=== PATIENT | male | born 1950 | race Caucasian/White ===

== ENCOUNTER 2020-03-12 22:41 | Emergency (ER) | payer MEDICARE, MEDICAID, SELFPAY ==
[2020-03-12 22:56] VITALS: BP 142/72; PULSE 91; RESP 18; TEMP 37.4; O2SAT 98; BMI 27.3
--- NOTE | 2020-03-13 02:20 | ED.GENADULT ---
HPI - General Adult General Chief complaint: Nausea/Vomiting/Diarrhea Stated complaint: HIGH BLOOD PRESSURE Time Seen by Provider: 03/13/20 02:02 Source: patient Mode of arrival: ambulatory Limitations: no limitations History of Present Illness HPI narrative: With history of hypertension take lisinopril/hydrochlorothiazide complaining of chills and slight hacking cough blood pressure was 190/90s at home denies any weakness no fever denies any contact with COVID Related Data Previous Rx's Medication Instructions Recorded dexamethasone [Decadron] 6 mg PO DAILY #7 tab 03/13/20 Allergies Allergy/AdvReac Type Severity Reaction Status Date / Time No Known Allergies Allergy Verified 03/12/20 23:01 [No Known Allergies*] Review of Systems Review of Systems: Constitutional : No Weight loss, No Fever, chills+ ENT/Mouth : No sore throat, No Rhinorrhea Eyes: No Eye Pain, No Swelling Cardiovascular : No Chest Pain, no Dyspnea on Exertion, No Orthopnea, No Edema, No Palpitations, no SOB Respiratory : No Cough, No Sputum Gastrointestinal : no Nausea, No Vomiting, No Diarrhea, No abdominal Pain, No Hematochezia, No Melena Genitourinary : No Dysuria, No Urinary Frequency Musculoskeletal : No joint pain, No Myalgias, No Joint Swelling Skin : No Skin Lesions, No rash Neuro : No Weakness, No Numbness, No Dizziness, No Headache Psych : No Anxiety/Panic, No Depression Heme/Lymph: No Bruising, No Lymphadenopathy Endocrine : No Polyuria, No Polydipsia All other systems reviewed and are negative FOR[facility]LY [facility] Past Medical History Medical History High cholesterol HTN (hypertension) Social History Social History Advance Directives: No Advance Directives Information Provided: No Physical Exam Vital Signs: Vital Signs: Last Vital Signs Temp 99.4 F 03/12/20 22:56 Pulse 81 03/13/20 03:41 Resp 16 03/13/20 03:41 BP 126/75 03/13/20 03:41 Pulse Ox 96 03/13/20 03:41 Body Mass Index 27.3 Appearance: Alert. Oriented X3. No acute distress. Eyes: Pupils equal, round and reactive to light. ENT: Pharynx normal. Neck: Normal inspection. Neck supple. CVS: Normal heart rate and rhythm. Pulses normal. Respiratory: No respiratory distress. Breath sounds normal. Abdomen: Soft and nontender. Bowel sounds are present, no mass palpable, no CVA tenderness Skin: Skin warm and dry. Normal skin color. Normal skin turgor. Extremities: No lower extremity edema. Neuro: Oriented X 3. No motor deficit. No sensory deficit. Medical Decision Making MDM Narrative Medical decision making narrative: Patient came with hypertension and slight dry cough and chills workup showed that she is COVID-19 positive chest x-ray negative for any acute infiltrate. His blood pressure was elevated at home 190/90s but after rechecking here it was in 130s range and while same time when he recheck with his blood pressure machine it improved but other times it was giving errors likely motion defect. Patient start patient on Decadron for his COVID positive status with dry cough and chills Lab Data Lab results reviewed: Yes I reviewed the patient's lab results. Labs: Lab Results 03/13/20 03/13/20 Range/Units 02:42 02:42 Urine Color YELLOW Urine Appearance CLEAR Urine pH 6.0 (5.0-8.0) Ur Specific [place] 1.020 (1.005-1.025) Urine Protein NEG (NEG-TRACE) MG/DL Urine Glucose (UA) NEG (NEG) MG/DL Urine Ketones NEG (NEG) MG/DL Urine Blood 1+ H (NEG) Urine Nitrite NEG (NEG) Ur Leukocyte Esterase NEG (NEG) Urine RBC 0-2 (0) /HPF Urine WBC 0 (0-4) /HPF Ur Squamous Epith Cells 1+ /LPF Urine Bacteria NONE /LPF Urine Mucus TRACE /LPF Coronavirus (PCR) POSITIVE A (Negative) Influenza Type A (PCR) NEGATIVE (Negative) Influenza Type B (PCR) NEGATIVE (Negative) RSV RNA Qual (PCR) NEGATIVE (Negative) Discharge Plan Discharge Clinical Impression: COVID-19 Patient Disposition: Home, Self-Care Instructions: COVID-19 (Coronavirus Disease 2019) (ED) Additional Instructions: COVID-19 precautions as advised, keep hydrated take medication as prescribed Prescriptions: New dexamethasone [Decadron] 6 mg tablet 6 mg PO DAILY Qty: 7 RF: 0 Interventions: ED Discharge Assessment Last Done: 03/13/20 04:44 Discharge Date/Time: 03/13/20 04:45
[2020-03-13 02:49] LABS: Glucose Urine UA NEG (NEG); Leukocyte Esterase Urine NEG (NEG); Nitrite Urine NEG (NEG); Urine Blood 1+ (NEG); Urine Ketones NEG (NEG); Urine Protein NEG (NEG-TRACE)
--- NOTE | 2020-03-13 02:49 | PC.NURSE ---
PT DENIES HAVING ANY GI SYMPTOMS, RESPIRATORY SYMPTOMS OR WEAKNESS. PT WORRIED ABOUT THE BLOOD PRESSURE READING FROM HIS CUFF AT HOME. PT ALSO CONCERNED BECAUSE HIS BP WAS ELEVATED, HE MIGHT HAVE COVID. PT ASKING IF IT WAS POSSIBLE TO GET FOOD POISONING FROM A SCRACH IN THE [place] THAT WAS COVERED WITH PAINT, THEN FOOD [place]ED. PT THREW OUT HIS [place].
[2020-03-13 02:51] LABS: Appearance Urine CLEAR; Color Urine YELLOW
[2020-03-13 02:55] LABS: Mucus Urine TRACE /LPF; RBC Urine 0-2 /HPF (0); Squamous Epithelial Cell Urine 1+ /LPF; WBC Urine 0 /HPF (0-4)
[2020-03-13 03:27] LABS: Influenza A PCR NEGATIVE (Negative); Influenza B PCR NEGATIVE (Negative); Resp Syncy Virus RNA Qual PCR NEGATIVE (Negative)
[2020-03-13 03:36] LABS: SARS COV2 PCR INHOUSE POSITIVE (Negative)
--- NOTE | 2020-03-13 03:38 | XR_ITS ---
EXAMINATION: CHEST 1 VIEW CLINICAL INFORMATION: Covid positivity. COMPARISON: 04/23/2015. TECHNIQUE: An AP view of the chest is provided. FINDINGS: The cardiac silhouette is not enlarged. The mediastinal and hilar contours are unremarkable. There are neither pleural effusions nor pneumothoraces. There are no consolidations. The osseous structures are unremarkable. XR/XR chest 1V IMPRESSION: No evidence for acute disease.
[2020-03-13 03:41] VITALS: BP 126/75; PULSE 81; RESP 16; O2SAT 96
[2020-03-13] MEDS: dexAMETHasone 6 MG TABLET PO (04:07)
--- NOTE | 2020-03-13 04:11 | PC.NURSE ---
PT HAS AN INFREQUENT DRY COUGH, REPORTS THAT HE HAD THE CHILLS TODAY AFTER BEING OUTSIDE. PT HAS BEEN EXPOSED TO COVID POSITIVE FRIENDS, OVER THE PAST WEEK.
== END 2020-03-13 04:45 | disposition home or self-care (01) ==
PROVIDERS: Emergency Provider Internal Medicine
DX: U07.1 COVID-19 (principal); I10 Essential (primary) hypertension
CPT/HCPCS: 0241U; 71045; 81001; 99283; 99284; J8540

== ENCOUNTER → 2021-01-02 11:00 | Outpatient (BNVA) | payer MEDICARE, OTHER, SELFPAY | PROVIDERS: Referring Provider Internal Medicine; Visit Provider Physician Assistant | DX: Z01.818 Encounter for other preprocedural examination (principal); E78.00 Pure hypercholesterolemia, unspecified; I10 Essential (primary) hypertension | CPT/HCPCS: 99202 ==

== ENCOUNTER 2021-02-24 11:14 | Day surgery (SDC) | payer MEDICARE, OTHER, SELFPAY ==
[2021-02-17 14:50] VITALS: BMI 28.8
[2021-02-24 11:28] VITALS: BP 135/72; PULSE 86; RESP 16; TEMP 37.2; O2SAT 98; BMI 28.8
--- NOTE | 2021-02-24 12:37 | HO.ANESPROP2 ---
HPI - Anesthesia Eval Consult details Narrative: 70 yo male patient for colonoscopy PMFSH Active Problems Active Problems: All Active Problems (Updated 02/17/21 @ 14:43 by Suly Chavez RN) COVID-19 (Acute) Encounter for screening colonoscopy (Acute) Past Medical History Medical History (Updated 02/17/21 @ 14:43 by Suly Chavez RN) Hand contusion High cholesterol History of COVID-19 HTN (hypertension) Family History Family History Brother HTN (hypertension) Brother HTN (hypertension) Family history of problems with anesthesia: No Surgical History Surgical History Hx of colonoscopy History of Problems with Anesthesia: No Social History Social History (Updated 01/02/21 @ 11:22 by Kym Madden PA-C) Household Members Other:: alone Alcohol intake: current Patient Tobacco Use Status: Never used Tobacco Advance Directives Information Provided: Yes Advance Directives on File: No Current occupational status: retired [employer] Allergies Allergy/AdvReac Type Severity Reaction Status Date / Time No Known Allergies Allergy Verified 01/02/21 11:02 [No Known Allergies*] Home Medications Medication Instructions Recorded Confirmed Last Taken Type amlodipine 10 mg tablet 10 mg PO DAILY 01/02/21 02/24/21 02/24/21 History 1000 atorvastatin 40 mg tablet 40 mg PO DAILY 01/02/21 02/17/21 Unknown History cholecalciferol (vitamin D3) 50 50 mcg PO DAILY 01/02/21 02/17/21 Unknown History mcg (2,000 unit) capsule lisinopril 20 1 tab PO DAILY 01/02/21 02/17/21 Unknown History mg-hydrochlorothiazide 25 mg tablet wuzlhrva-hbp-pfuwr acid 0.4 1 tab PO DAILY 01/02/21 02/17/21 Unknown History mg-lycopene 300 mcg-lutein 250 mcg tablet ([employer]ite Senior) Exam Exam Date and Time: February 24, 2021 1237 Height,Weight and Vital Signs: Height 5 ft 8 in Weight 86.183 kg Last Vital Signs Temp 98.9 F 02/24/21 11:28 Pulse 86 02/24/21 11:28 Resp 16 02/24/21 11:28 BP 135/72 02/24/21 11:28 Pulse Ox 98 02/24/21 11:28 Airway Mallampati Class: II TM Dist: >3cm Neck ROM: Full Loose/Missing/Broken Teeth: No Heart: RRR Lungs: CTAB Assessment and Plan Assessment Anesthesia Assessment: Anesthesia Plan Discussed and Chart Reviewed Final Anesthetic Review Family History of Problems with Anesthesia: No History of Problems with Anesthesia: No NPO: Yes ASA Class: II Final Preanesthetic Review: No Changes in Pt Med Stat, Meds/Allgs Chart Reviewed, Consent Obtained/Reviewed and Anes Risks/Benef Reviewed Patient Risk: Low Procedure Risk: Low Assessment/Block/Sedation in SS: Assess/Block/Sedation-SS Anesthetic Plan Anesthetic Plan: MAC: Disposition: Standard PACU
--- NOTE | 2021-02-24 13:24 | MHC.SHP ---
Pre-Procedural Eval Section A Date of Service: 02/24/21 The patient is an INPATIENT: No The History & Physical has been completed within 30 days and I have reviewed it.: No Section B Chief Complaint: Screening Details of Present Illness: Colon cancer screening Relevant Family History (Specify if Yes): No Relevant Social History: None Present Medications: see Short Stay Collaborative assessment Medical History: Significant History (Hand contusion High cholesterol HTN (hypertension)) History of Previous Operations: Relevant previous surgery/procedure and date(s) (History of colonoscopy) Allergies: Allergies Allergy/AdvReac Type Severity Reaction Status Date / Time No Known Allergies Allergy Verified 01/02/21 11:02 [No Known Allergies*] Review of Systems Sugical H&P ROS: Negative: Constitution, Cardiovascular, Respiratory and Gastrointestinal Exam Surgical H&P Exam: Normal: Heart, Normal: Lungs, Normal: Extremities and Normal: Abdomen Plan Diagnosis/Plan: Unchanged I have reviewed the history and physical and performed a pertinent physical examination on my patient. No changes have occurred unless specified.
--- NOTE | 2021-02-24 14:02 | PM.OP ---
Brief Operative Note Date of Service: 02/24/21 Pre-op diagnosis: COLON CANCER SCREENING Post-op diagnosis: other (Colon polyp, diverticulosis, hemorrhoids) Procedure: COLONOSCOPY TILL CECUM WITH BIOPSIES Consent: Indications for the procedure and potential complications of bleeding, perforation, reaction to medications and missed diagnosis were discussed with the patient and informed consent was obtained. Instrument: Olympus PCF H 190 L variable stiffness pediatric colonoscope Monitoring: Vital signs and clinical assessment, intermittent blood pressure monitoring, continuous EKG monitoring, Pulse oximetry and Carbon Dioxide monitoring were done throughout the procedure. Colon withdrawl time was 19 minutes. Procedure: The patient was placed in the left lateral decubitis position and pre-procedure medications were administered. After a digital rectal examination of the ano-rectum, the video colonoscope was inserted into the rectum and advanced through the colon to the cecum. The colonoscope was slowly withdrawn in a retrograde panoramic fashion and the colon mucosa was carefully examined including a retroflexed view of the rectum. Findings and interventions are described below. Procedure Difficulty: Without difficulty Findings: Terminal Ileum: Not evaluated Cecum: Normal Ascending Colon: Normal Transverse Colon: Normal Descending Colon: Moderate diverticulosis Sigmoid Colon: A 4-5 mm sessile polyp removed with a cold bx. Moderate diverticulosis Rectum: Normal Ano-rectum: Moderate internal hemorrhoids Colon preparation: Good Impression and Post Procedure Diagnosis: Colonoscopy Findings: One small polyps removed Moderate diverticulosis seen in the entire colon Moderate hemorrhoids on retroflexed exam. Plan: Await pathology results Patient has an appointment on 03/10/21 in the GI Clinic with VERITO Dos Santos. Repeat Colonoscopy interval based on path results - in 5 years if polyps are adenomatous and 10 years if polyps are hyperplastic. Above findings were reviewed with the patient and colon polyps, hemorrhoids and diverticulosis handouts were given in the discharge area Surgeon: Le Denise MD Anesthesia: MAC (Domingo Dutta CRNA) Was an Portable Grinding Machine Operator used for this Procedure?: Yes Portable Grinding Machine Operator: Tala Flores Estimated blood loss (mL): 0 Pathology: other (A. sigmoid colon polyp) Condition: stable Disposition: PACU
[2021-02-24 14:35] VITALS: BP 81/52; PULSE 68; RESP 16; TEMP 36.5; O2SAT 96
[2021-02-24 14:51] VITALS: BP 95/56; PULSE 77; RESP 18; TEMP 36.2; O2SAT 97
--- NOTE | 2021-03-20 19:01 | PM.PROC ---
Brief Operative Note Date of procedure: 02/24/21 Pre-op diagnosis: Colon cancer screening Post-op diagnosis: other (Colon polyp, diverticulosis, hemorrhoids) Procedure: Procedure:? COLONOSCOPY TILL CECUM WITH BIOPSIES Consent: Indications for the procedure and potential complications of bleeding, perforation, reaction to medications and missed diagnosis were discussed with the patient and informed consent was obtained. Instrument: Olympus PCF H 190 L variable stiffness pediatric colonoscope Monitoring: Vital signs and clinical assessment, intermittent blood pressure monitoring, continuous EKG monitoring, Pulse oximetry and Carbon Dioxide monitoring were done throughout the procedure. Colon withdrawl time was 19 minutes. Procedure: The patient was placed in the left lateral decubitis position and pre-procedure medications were administered. After a digital rectal examination of the ano-rectum, the video colonoscope was inserted into the rectum and advanced through the colon to the cecum. The colonoscope was slowly withdrawn in a retrograde panoramic fashion and the colon mucosa was carefully examined including a retroflexed view of the rectum. Findings and interventions are described below. Procedure Difficulty: Without difficulty Findings: Terminal Ileum: Not evaluated Cecum:? Normal Ascending Colon:? Normal Transverse Colon:? Normal Descending Colon:? Moderate diverticulosis Sigmoid Colon:? A 4-5 mm sessile polyp removed with a cold bx. Moderate diverticulosis Rectum:? Normal Ano-rectum:? Moderate internal hemorrhoids Colon preparation:? Good? Impression and Post Procedure Diagnosis: Colonoscopy Findings: One small polyps removed Moderate diverticulosis seen in the entire colon Moderate hemorrhoids on retroflexed exam. Plan: Await pathology results Patient has an appointment on 03/10/21 in the GI Clinic with VERITO Dos Santos. Repeat Colonoscopy interval based on path results - in 5 years if polyps are adenomatous and 10 years if polyps are hyperplastic. Above findings were reviewed with the patient and colon polyps, hemorrhoids and diverticulosis handouts were given in the discharge area Surgeon:?Le Denise MD Anesthesia: MAC (Domingo Dutta CRNA) Surgeon: Le Denise Cost Accounting Analyst: Tala Flores Estimated blood loss (mL): 0 Pathology: other (A. Sigmoid colon polyp) Condition: stable Disposition: PACU
== END 2021-02-24 15:36 | disposition home or self-care (01) ==
PROVIDERS: Visit Provider Internal Medicine Gastroenterology
PROC: 0DJD8ZZ Inspection of Lower Intestinal Tract, Via Natural or Artificial Opening Endoscopic (ICD-10-PCS; CPT 45378; principal; 2021-02-24 12:00)
DX: Z12.11 Encounter for screening for malignant neoplasm of colon (principal); D12.5 Benign neoplasm of sigmoid colon; K57.30 Diverticulosis of large intestine without perforation or abscess without bleeding; K64.8 Other hemorrhoids; I10 Essential (primary) hypertension; E78.00 Pure hypercholesterolemia, unspecified; Z79.899 Other long term (current) drug therapy
CPT/HCPCS: 45380; 88305

== ENCOUNTER 2023-11-02 08:34 | Outpatient (REF) | payer MEDICARE, SELFPAY ==
--- NOTE | ~2023-11-02 | US_ITS ---
EXAMINATION: US RETROPERITONEAL LIMITED (AORTA) CLINICAL INFORMATION: Screening for abdominal aortic aneurysm. COMPARISON: Ultrasound abdomen 11/27/2010. TECHNIQUE: Keating-scale, color Doppler and spectral Doppler evaluation of the abdominal aorta. FINDINGS: The aorta is normal in caliber. The measurements of the aorta in maximum AP and transverse dimensions respectively are as follows: Proximal: 2.4 x 2.5 cm. Mid: 1.6 x 1.8 cm. Distal: 1.6 x 1.8 cm. PSV: 114 cm/s. The measurements of the common iliac arteries in maximum AP and TRV dimensions are as follows: Right Common Iliac Artery: 1.2 x 1.1 cm. Left Common Iliac Artery: 1.1 x 1.2 cm. US/US abdominal aortic aneurysm IMPRESSION: Negative for abdominal aortic aneurysm.
== END 2023-11-02 08:35 | disposition home or self-care (01) ==
LOC: HO.US 08:34
PROVIDERS: PCP Nurse Practitioner Primary Care; Visit Provider Nurse Practitioner Primary Care
DX: Z13.6 Encounter for screening for cardiovascular disorders (principal)
CPT/HCPCS: 76706

== ENCOUNTER 2025-01-16 14:42 | Outpatient (REF) | payer MEDICARE, SELFPAY ==
--- NOTE | ~2025-01-16 | XR_ITS ---
EXAMINATION: XR KNEE, RIGHT CLINICAL INFORMATION: chronic R knee pain COMPARISON: None available. TECHNIQUE: AP standing, sunrise and lateral views of the right knee. FINDINGS: There is mild narrowing of the medial joint space and mild narrowing of the lateral joint space. There are tricompartmental marginal osteophytes are largest along the medial joint line and lateral patellofemoral joint, and medial trochlea. There is no joint effusion. XR/XR knee RT 3V IMPRESSION: Mild to moderate osteoarthritis. Electronically signed by: Jack Bates MD 01/16/2025 03:26 PM EDT
--- NOTE | ~2025-01-16 | XR_ITS ---
EXAMINATION: XR KNEE, LEFT CLINICAL INFORMATION: fell in February, hit L knee. Ongoing pain x 3 mo COMPARISON: None available. TECHNIQUE: AP standing (included in the right knee x-ray), sunrise and lateral views of the left knee. FINDINGS: There is mild to moderate narrowing in the medial joint space and minimal narrowing of the lateral joint space. There is subtle medial subluxation of distal femur. There are tricompartmental marginal osteophytes most pronounced in the medial joint line and patellofemoral joint. Intercondylar tubercles are peaked. No joint effusion is evident. XR/XR knee LT 3V IMPRESSION: Moderate osteoarthritis. Electronically signed by: Jack Bates MD 01/16/2025 03:28 PM EDT
[2025-01-16 16:18] LABS: MANUAL DIFF FLAG NO
[2025-01-16 16:37] LABS: Microalbum/Creatinine Ratio Ur 3.9 ug/mg cr (<30)
[2025-01-16 16:45] LABS: Hematocrit 49.2 % (42.0-52.0); Hemoglobin 16.5 g/dl (14.0-18.0); Imm Gran Abs Auto 0.03 X10*3/uL (0.00-0.03); Imm Gran Pct Auto 0.4 % (0.0-0.4); Lymphocytes Absolute Auto 1.9 X10*3/uL (1.2-4.9); Mean Corpuscular HGB Conc 33.5 g/dl (31.0-36.0); Mean Corpuscular Hemoglobin 32.0 pg (27.0-33.0); Mean Corpuscular Volume 95.5 fL (80.0-98.0); NRBC Abs Auto 0.000 X10*3/uL (0.0-0.012); NRBC Pct Auto 0.0 /100WBC (0.0-0.2); Platelet Count 341 X10*3/uL (160-400); Red Blood Count 5.15 X10*6/uL (4.60-5.80); White Blood Count 8.1 X10*3/uL (4.8-10.8)
[2025-01-16 17:25] LABS: Alanine Aminotransferase 36 U/L (0-40); Albumin Level 4.4 g/dL (3.5-5.0); Alkaline Phosphatase 61 U/L (39-117); Anion Gap 12 (12-20); Aspartate Amino Transferase 25 U/L (5-37); Blood Urea Nitrogen 22 mg/dL (9-16); Calcium 9.4 mg/dL (8.4-10.2); Carbon Dioxide 29 mmol/L (22-29); Chloride 103 mmol/L (96-108); Cholesterol 224 mg/dL (<200); Estimated Glomerular Filt Rate > 60; HDL Cholesterol 74 mg/dL (>40); Potassium 3.8 mmol/L (3.3-5.1); Sodium 140 mmol/L (135-145); Total Protein 7.4 g/dL (6.5-8.0); Triglycerides 131 mg/dL (<150)
--- OUTSIDE RECORDS SUMMARY | 2025-01-16 19:10 | XMS_ITS | Encounter Summary ---
Author Organization [employer] Address [address] [facility] [address] [place] [address] Care Team Providers Care Coroner'S Juror Name Role Phone Karina Menard Primary Care Provider [phone] Reason for Visit * Reason Onset Date Comments Appointment Request 07/14/2024 Encounter Details Date Type Department Care Team ([facility] st Contact Info) Description 07/14/[address] [facility] MEDICINE [address] [place] [address] Karina Menard ANP [address] [place] [address] Appointment Request Social History Tobacco Use Types Packs/Day Years Used Date Smoking Tobacco: Former Cigarettes Q uit: 1992 Smokeless Tobacco: Never Alcohol Use Standard Drinks/Week Comments Yes 0 (1 standard drink = 0.6 oz pure alcohol) a few cans of Truly on weekend Alcohol Answer Date Recorded Frequency of Alcohol Consumption Not on file 05/27/2023 Average Number of Drinks Not on file 024 Frequency of Binge Drinking Not on file 09/2023 Score 0 05/27/2023 Depression Answer Date Recorded Patient Health Questionnaire-9 Score 0 09/07/2023 Patient Health Questionnaire-9 Score 0 09/07/2023 Last PHQ-9: Questionnaire Data Not on file 0 09/07/2023 Housing Stability Answer Date Recorded What is your housing situation today? I have boni [place] 06/26/[address] you li ve. Do you have problems with any of the following? None of the above 06/26/2024 Food Insecurity Answer Date Recorded Within the past 12 months, y ou worried that your food would run out before you got money to buy more: Never True 06/26/2024 Within the past 12 months,th e food you bought just didn't last and you didn't have enough money to get more: Never True 09/2024 Transportation Answer Date Recorded In the past 12 months, has l ack of transportation kept you from medical appts, meetings, work or from getting things needed for daily living? No 06/26/2024 Utilities Answer Date Recorded In the past 12 months, has t he electric, gas, oil or water company threatened to shut off services in your home? No 06/26/2024 Depression Answer Date Recorded Patient Health Questionnaire-2 Score 1 06/26/2024 Internet Access Answer Date Recorded Internet Access Q1 Yes 06/26/2024 Internet Access Q2 Not on file 06/26/2024 Sex and Gender Information Value Date Recorded Sex Assigned at Male 01/19/2022 10:16 AM EDT Legal Sex Male 10:16 AM EDT Gender Identity Male 01/19/2022 10:16 AM EDT Sexual Orientation Choose not to disclose 2021 10:16 AM EDT documented as of this encounter Miscellaneous Notes * Telephone Encounter - Ashli Noble MA - 07/14/2024 1:37 PM EDT Patient is booked for 08/01/2024 @10:30 am and he is aware. After that visit we could schedule him for the next knee. * Telephone Encounter - Ashok Urban - 07/14/2024 11:52 AM EDT Tc from pt requesting a appt with PCP to get a Cortisone Shot for his Right Leg. Contact pt at [phone] documented in this encounter Plan of Treatment Not on file documented as of this encounter Visit Diagnoses Not on filedocumented in this encounter Additional Health Concerns Assessment Noted Time PHQ-9 Depression Total Score: 0 09/07/19 24 1:41 PM EDT documented as of this encounter Care Teams Coroner'S Juror Relationship Specialty Start Date End Date Karina Menard ANP [address] [place] [address] PCP - General Family Medicine 02/16/22 documented as of this encounter
--- OUTSIDE RECORDS SUMMARY | 2025-01-16 19:10 | XMS_ITS | Encounter Summary ---
Author Organization [employer] Address [address] [facility] [address] [place] [address] Care Team Providers Care Linen Folder Name Role Phone Karina Menard Primary Care Provider [phone] Reason for Visit * Reason Comments Med Refill Encounter Details Date Type Department Care Team (Late st Contact Info) Description 01/10/2025 Refill [facility] MEDICINE [address] [place] [address] Karina Menard ANP [address] [place] [address] Vitamin D deficiency Social History Tobacco Use Types Packs/Day Years [...] AM EDT documented as of this encounter Plan of Treatment Not on file documented as of this encounter Visit Diagnoses Diagnosis Vitamin D deficiency documented in this encounter Additional Health Concerns Assessment Noted Time PHQ-9 Depression Total Score: 0 09/07/19 24 1:41 PM EDT documented as of this encounter Care Teams Linen Folder Relationship Specialty Start Date End Date Karina Menard ANP [address] [place] [id number] PCP - General Family Medicine 02/16/22 documented as of this encounter
--- OUTSIDE RECORDS SUMMARY | 2025-01-16 19:10 | XMS_ITS | Encounter Summary ---
Author Organization [employer] Address [address] [place] [address] [address] [place] [address] Care Team Providers Care Automobile Radiator Mechanic Name Role Phone Na Matthews MD Primary Care Provider Karina Silva Primary Care Provider [phone] Encounter Details Date Type Department Care Team (Latest Contact Info) Description 07/21/2021 Abstract [facility] CONVERSIONS Dental, Provider, DDS Social History Tobacco Use Types Packs/Day Years Used Date Smoking Tobacco: Never Assessed Sex and Gender Information Value Date Recorded Sex Assigned at Male 01/19/2022 10:16 AM EDT Legal Sex Male 10:16 AM EDT Gender Identity Male 01/19/2022 10:16 AM EDT Sexual Orientation Choose not to disclose 2021 10:16 AM EDT documented as of this encounter Plan of Treatment Not on file documented as of this encounter Visit Diagnoses Not on filedocumented in this encounter Care Teams Automobile Radiator Mechanic Relationship Specialty Start Date End Date Na Matthews MD PCP - General Family Medicine 09/08/19 02/15/22 Karina Menard ANP [address] [place] [id number] PCP - General Family Medicine 02/16/22 documented as of this encounter
--- OUTSIDE RECORDS SUMMARY | 2025-01-16 19:10 | XMS_ITS | Encounter Summary ---
Author Organization [employer] Address [address] [facility] [address] [place] [address] Care Team Providers Care Magisterial District Judge Name Role Phone Derian Karina ROSA Primary Care Provider [phone] Encounter Details Date Type Department Care Team ([facility] st Contact Info) Description 07/20/2023 Orders Only [facility] MEDICINE [address] [place] [address] ProviderRosemarie MD Social History Tobacco Use Types Packs/Day Years [...] Not on file 09/2023 Score 0 05/27/2023 Housing Stability Answer Date Recorded What is your housing situation today? I have boni [place] 05/27/[address] you li ve. Do you have problems with any of the following? None of the above 05/27/2023 Food Insecurity Answer Date Recorded Within the past 12 months, y ou worried that your food would run out before you got money to buy more: Never True 05/27/2023 Within the past 12 months,th e food you bought just didn't last and you didn't have enough money to get more: Never True 09/2023 Transportation Answer Date Recorded In the past 12 months, has l ack of transportation kept you from medical appts, meetings, work or from getting things needed for daily living? No 05/27/2023 Utilities Answer Date Recorded In the past 12 months, has t he electric, gas, oil or water company threatened to shut off services in your home? No 05/27/2023 Depression Answer Date Recorded Patient Health Questionnaire-2 Score 0 05/27/2023 Sex and Gender Information Value Date Recorded Sex Assigned at Male 01/19/2022 10:16 AM EDT Legal Sex Male 10:16 AM EDT Gender Identity Male 01/19/2022 10:16 AM EDT Sexual Orientation Choose not to disclose 2021 10:16 AM EDT documented as of this encounter Plan of Treatment Not on file documented as of this encounter Procedures Procedure Name Priority Date/Time Associated Diagnosis Comments HM COLONOSCOPY Routine 02/24/2021 10:54 AM EST documented in this encounter Results * Hm Colonoscopy (02/24/2021 10:54 AM EST) Historical Provider HEALTH MAINTENANCE Final Result documented in this encounter Visit Diagnoses Not on filedocumented in this encounter Care Teams Magisterial District Judge Relationship Specialty Start Date End Date Karina eMnard ANP [address] [place] [id number] PCP - General Family Medicine 02/16/22 documented as of this encounter
--- OUTSIDE RECORDS SUMMARY | 2025-01-16 19:10 | XMS_ITS | Encounter Summary ---
Author Organization [employer] Address [address] [place] [address] [address] [place] [address] Care Team Providers Care Audio Visual Tech Name Role Phone Na Matthews MD Primary Care Provider Karina Silva Primary Care Provider [phone] Encounter Details Date Type Department Care Team (Latest Contact Info) Description 01/30/2019 Abstract [facility] CONVERSIONS Dental, Provider, DDS Social [...] on filedocumented in this encounter Care Teams Audio Visual Tech Relationship Specialty Start Date End Date Na Matthews MD PCP - General Family Medicine 09/08/19 02/15/22 Karina Menard ANP [address] [place] [id number] PCP - General Family Medicine 02/16/22 documented as of this encounter
--- OUTSIDE RECORDS SUMMARY | 2025-01-16 19:10 | XMS_ITS | Clinical Summary ---
Author Organization [employer] Address [address] [facility] 7[address] [place] [address] Care Team Providers Care Beef Breaker Name Role Phone Sunny Paniagua SHELLEY Primary Care Provider [phone] Allergies No known active allergies Medications polyvinyl alcohol (Liquifilm Tears) 1.4 % ophthalmic solutionIndicati ons:Dry eyes Administer 1 drop into both eyes if needed for dry eyes. 15 mL 3 05/27/19 24 Active Multiple Vitamins-Mineral s (CertaVite Senior/Antioxida nt) tablet TAKE 1 TABLET BY MOUTH EVERY DAY 90 tablet 06/02/19 25 Active amLODIPine (Norvasc) 10 MG tabletIndication s:Essential hypertension TAKE 1 TABLET BY MOUTH EVERY DAY 90 tablet 1 09/21/19 25 Active atorvastatin (Lipitor) 40 MG tablet TAKE 1 TABLET BY MOUTH AT BEDTIME 90 tablet 1 09/27/19 25 Active lisinopril-hydro CHLOROthiazide 20-25 MG tabletIndication s:Primary hypertension TAKE 1 TABLET BY MOUTH DAILY 90 tablet 1 12/13/19 25 Active D3 Super Strength 50 MCG (2000 UT) capsuleIndicatio ns:Vitamin D deficiency TAKE 1 CAPSULE BY MOUTH EVERY MORNING 90 capsule 1 01/12/20 25 Active D3 Super Strength 50 MCG (2000 UT) capsuleIndicatio ns:Vitamin D deficiency TAKE 1 CAPSULE BY MOUTH EVERY MORNING 90 capsule 1 02/11/20 24 025 Discontinued Active Problems Problem Noted Date Diagnosed Date Prediabetes 06/26/2024 Former smoker, stopped smoking in distant past 0 05/27/2023 Overview (05/27/2023): approx 1993 Hypertension 09/03/2011 Impaired fasting glucose 11/03/2010 Encounters Date Type Department Care Team Description 01/10/2025 Refill [facility] MEDICINE [address] [place] [address] Sunny Paniagua ANP Vitamin D deficiency 01/05/2025 10:30 AM EDT Office Visit [facility] OPTOMETRY [address] [place] [address] Tomas, Phyllis, OD Pseudophakia of both eyes (Primary Dx); Presbyopia; Dry eyes 01/05/2025 Travel 12/11/2024 Refill [facility] [address] [place] [address] Sunny Paniagua ANP Primary hypertension 11/28/2024 9:30 AM EDT Procedure Visit [facility] [address] [place] [address] Alyssia Gutiérrez MD Chronic pain of left knee (Primary Dx) 11/28/2024 Travel from Last 3 Months Immunizations Immunization Administration Dates Next Due Hep A, Adult 09/19/2011 Hep B, adult 08/01/2012,04/24/2011 Influenza High-dose Quadrivalent Preservative Fr ee 12/09/2022 Influenza Quadrivalent Adjuvanted 01/23/2021 Influenza injectable quadrivalent preservative f ree 01/30/2022 Influenza, High Dose Seasonal, Preservative Free 12/18/2024,12/16/2023 Pfizer Covid-19 Vaccine 12+ 12/16/2023, Pneumococcal Conjugate PCV 13 11/17/2017 Pneumococcal Polysaccharide PPSV23 05/31/2019, RSV Bivalent 12/09/2022 TD (adult), 2 Lf tetanus tox oid, preservative free, adsorbed 09/07/2023 Tdap 08/01/2012 Zoster, Recombinant 10/07/2021,07/31/2021 Zoster, live 11/17/2017 Social History Tobacco Use Types Packs/Day Years Used Date Smoking Tobacco: Former Cigarettes Q uit: 1993 Smokeless Tobacco: Never Tobacco Cessation:Counseling Given: Not Answered Alcohol Use Standard Drinks/Week Comments Yes 0 (1 standard drink = 0.6 oz pure alcohol) a few cans of Truly on weekend Alcohol Answer Date Recorded Frequency of Alcohol Consumption Not on file 05/27/2023 Average Number of Drinks Not on file 024 Frequency of Binge Drinking Not on file 03/0 09/2023 Score 0 05/27/2023 Depression Answer Date [...] not to disclose 2021 10:16 AM EDT Last Filed Vital Signs Vital Sign Reading Time Taken Comments Blood Pressure 138/68 11/28/2024 9:54 AM EDT Pulse 88 11/28/2024 9:54 AM EDT Temperature 36.7 C (98 F) 11/28/2024 9:54 AM EDT Respiratory Rate 18 11/28/2024 9:54 AM EDT Oxygen Saturation 98% 06/26/2024 2:42 PM EDT Inhaled Oxygen Concentration - - Weight 86.2 kg (190 lb) 11/28/2024 9:54 AM EDT Height 172.7 cm (5' 8 ) 11/28/2024 9:54 AM EDT Body Mass Index 28.89 11/28/2024 9:54 AM EDT Plan of Treatment Health Maintenance Due Date Last Done Comments CT Colonography 1950 FIT DNA/Cologuard 1950 FIT 1950 FOBT 1950 Sigmoidoscopy 1950 Alcohol/Substance Use Screening 1963 Hepatitis C Screening 1969 Hepatitis B Vaccines (3 of 3 - 19+ 3-dose series) 09/26/2012 08/01/2012, 04/24/2011 COVID-19 Vaccine ( season) 2024 12/16/2023, 01/28/2023, 01/30/2022, Additional history exists Lipid Panel 06/07/2025 01/16/2025, 06/07/2020 Depression Screening 06/26/2025 06/26/2024, 09/07/19 24 Diabetes: Hemoglobin A1C 06/26/2025 06/26/2024, 05/20 SDOH Screening 06/26/2025 06/26/2024 Tobacco Screening 01/05/2026 01/05/2025 Colonoscopy 02/24/2026 02/24/2021 Colorectal Cancer Screening 02/24/2026 DTaP/Tdap/Td Vaccines (3 - Td or Tdap) 09/06/2033 09/07/2023, 08/01/2012 Hepatitis A Vaccines Aged Out 09/19/2011 No long er eligible based on patient's age to complete this topic Pneumococcal Vaccine: 50+ Years Completed 05/31/2019, 11/17/2017, 01/04/2013 Zoster Vaccines Completed 10/07/2021, 07/20, 11/17/2017 RSV Patients and Patients Aged 60 years or older Completed 12/09/2022 Influenza Vaccine Completed 12/18/2024, , 12/09/2022, Additional history exists HIB Vaccines Aged Out No longer eligi ble based on patient's age to complete this topic HPV Vaccines Aged Out No longer eligi ble based on patient's age to complete this topic IPV Vaccines Aged Out No longer eligi ble based on patient's age to complete this topic Meningococcal B Vaccine Aged Out No l onger eligible based on patient's age to complete this topic Meningococcal Vaccine Aged Out No betsy aleena eligible based on patient's age to complete this topic RSV under 20 months Aged Out No longe r eligible based on patient's age to complete this topic Rotavirus Vaccines Aged Out No longer eligible based on patient's age to complete this topic Procedures Procedure Name Priority Date/Time Associated Diagnosis Comments CBC WITH AUTO DIFFERENTIAL Routine 01/16/2025 3:08 PM EDT Healthcare maintenance XR KNEE 3 VIEWS RIGHT Routine 01/16/2025 3:01 PM EDT Chronic pain of both knees XR KNEE 3 VIEWS LEFT Routine 01/16/2025 3:01 PM EDT Chronic pain of both knees ALBUMIN, RANDOM URINE W/CREATININE Routine 01/16/2025 2:47 PM EDT Primary hypertension LIPID PANEL, STANDARD Routine 01/16/2025 2:47 PM EDT Primary hypertension Impaired fasting glucose COMPREHENSIVE METABOLIC PANEL Routine 01/16/2025 2:47 PM EDT Primary hypertension DC ARTHROCENTESIS ASPIR&/INJ MAJOR JT/BURSA W/O US Routine 11/28/2024 9:54 AM EDT Chronic pain of left knee POCT GLYCATED HEMOGLOBIN, TOTAL Routine 06/26/2024 2:56 PM EDT Impaired fasting glucose HM COLONOSCOPY Routine 02/24/2021 10:54 AM EST from Last 3 Months or Most Recently Relevant to Health Maintenance Results * CBC auto differential (01/16/2025 3:08 PM EDT) White Blood Count 8.1 4.8 - 10.8 X10*3/uL [facility] Red Blood Count 5.15 4.60 - 5.80 X10*6/uL [facility] Hemoglobin 16.5 14.0 - 18.0 g/dl [facility] Hematocrit 49.2 42.0 - 52.0 % [facility] Mean Corpuscular Volume 95.5 80.0 - 98.0 fL [facility] Mean Corpuscular Hemoglobin 32.0 27.0 - 33.0 pg [facility] Mean Corpuscular HGB Conc 33.5 31.0 - 36.0 g/dl [facility] Red Cell Distribution Width 12.1 11.0 - 16.0 % [facility] Platelet Count 341 160 - 400 X10*3/uL [facility] Mean Platelet Volume 10.0 9.4 - 12.4 fL [facility] Neutrophils Percent Auto 65.9 45 - 73 % [facility] Imm Gran Pct Auto 0.4 0.0 - 0.4 % [facility] Lymphocytes Percent Auto 23.7 20 - 40 % [facility] Monocytes Percent Auto 9.3 2 - 11 % [facility] Eosinophils Percent Auto 0.5 0 - 4 % [facility] Basophils Percent Auto 0.2 0 - 2 % [facility] NRBC Pct Auto 0.0 0.0 - 0.2 /100WBC [facility] Neutrophils Absolute Auto 5.3 2.0 - 8.3 x10*3/uL [facility] Imm Gran Abs Auto 0.03 0.00 - 0.03 X10*3/uL [facility] Lymphocytes Absolute Auto 1.9 1.2 - 4.9 X10*3/uL [facility] Monocytes Absolute Auto 0.8 0.1 - 1.2 X10*3/uL [facility] Eosinophils Absolute Auto 0.0 0.0 - 0.4 X10*3/uL [facility] Basophils Absolute Auto 0.0 0.0 - 0.2 X10*3/uL [facility] NRBC Abs Auto 0.000 0.0 - 0.012 X10*3/uL [facility] Blood Venous blood specimen / Unknown 01/16/2025 3:08 PM EDT 01/16/2025 4:12 PM EDT us Sunny Paniagua ANP LAB BLOOD ORDERABLES Final Resul t [facility] [address] [place] [phone] * XR Knee 3 Views Right (01/16/2025 3:01 PM EDT) Anatomical Region Laterality Modality Lower Extremities, Knee Right Radiogra phic Imaging 01/16/2025 3:01 PM EDT Narrative 01/16/2025 3:29 PM EDT [address] [address] XRay Report Signed Patient: Marcelo Cleveland MR#: [id number] [birth year] : 1950 Acct:[id number] Age/Sex: 74 / M ADM Date: 01/16/25 Loc: [facility] Attending Dr: Sunny Paniagua NP Ordering Physician: SUNNY PANIAGUA NP Date of Service: 01/16/25 Procedure(s): XR knee RT 3V Accession Number(s): [id number] cc: SUNNY PANIAGUA NP Reason for Exam: chronic R knee pain EXAMINATION: XR KNEE, RIGHT CLINICAL INFORMATION: chronic R knee pain COMPARISON: None available. TECHNIQUE: AP standing, sunrise and lateral views of the right knee. FINDINGS: There is mild narrowing of the medial joint space and mild narrowing of the lateral joint space. There are tricompartmental marginal osteophytes are largest along the medial joint line and lateral patellofemoral joint, and medial trochlea. There is no joint effusion. XR/XR knee RT 3V IMPRESSION: Mild to moderate osteoarthritis. Electronically signed by: Jack Bates MD 01/16/2025 03:26 PM EDT Dictated By: Jack Bates MD Signed By: <Electronically signed by Jack Bates MD in OV> 01/16/25 1526 DD/ 1501 TD/TT: 01/16/25 1520 Ui Engineer: Procedure Note Donotuseinterpreter, Image - 01/16/[address] [address] XRay Report Signed Patient: Kenia ClevelandR#: [id number] [birth year] : 2Acct:[id number] Age/Sex: 74 / MADM Date: 01/16/25 Loc: [facility] Attending Dr: Sunny Paniagua NP Ordering Physician: SUNNY PANIAGUA NP Date of Service: 01/16/25 Procedure(s): XR knee RT 3V Accession Number(s): [id number] cc: SUNNY PANIAGUA NP Reason for Exam: chronic R knee pain EXAMINATION: XR KNEE, RIGHT CLINICAL INFORMATION: chronic R knee pain COMPARISON: None available. TECHNIQUE: AP standing, sunrise and lateral views of the right knee. FINDINGS: There is mild narrowing of the medial joint space and mild narrowing of the lateral joint space. There are tricompartmental marginal osteophytes are largest along the medial joint line and lateral patellofemoral joint, and medial trochlea. There is no joint effusion. XR/XR knee RT 3V IMPRESSION: Mild to moderate osteoarthritis. Electronically signed by: Jack Bates MD 01/16/2025 03:26 PM EDT Dictated By: Jack Bates MD Signed By: <Electronically signed by Jack Bates MD in OV> 01/16/25 1526 DD/ 1501 TD/TT: 01/16/25 1520 Ui Engineer: us Sunny Paniagua ANP IMG XR PROCEDURES Final Result * XR Knee 3 Views Left (01/16/2025 3:01 PM EDT) Anatomical Region Laterality Modality Lower Extremities, Knee Left Radiogra phic Imaging 01/16/2025 3:01 PM EDT Narrative 01/16/2025 3:31 PM EDT [address] [address] XRay Report Signed Patient: Marcelo Cleveland MR#: [id number] [birth year] : 1950 Acct:[id number] Age/Sex: 74 / M ADM Date: 01/16/25 Loc: [facility] Attending Dr: Sunny Paniagua FITTER UP Ordering Physician: SUNNY PANIAGUA NP Date of Service: 01/16/25 Procedure(s): XR knee LT 3V Accession Number(s): [id number] cc: SUNNY PANIAGUA NP Reason for Exam: fell in February, hit L knee. Ongoing pain x 3 mo EXAMINATION: XR KNEE, LEFT CLINICAL INFORMATION: fell in February, hit L knee. Ongoing pain x 3 mo COMPARISON: None available. TECHNIQUE: AP standing (included in the right knee x-ray), sunrise and lateral views of the left knee. FINDINGS: There is mild to moderate narrowing in the medial joint space and minimal narrowing of the lateral joint space. There is subtle medial subluxation of distal femur. There are tricompartmental marginal osteophytes most pronounced in the medial joint line and patellofemoral joint. Intercondylar tubercles are peaked. No joint effusion is evident. XR/XR knee LT 3V IMPRESSION: Moderate osteoarthritis. Electronically signed by: Jack Bates MD 01/16/2025 03:28 PM EDT Dictated By: Jack Bates MD Signed By: <Electronically signed by Jack Bates MD in OV> 01/16/25 1528 DD/ 1501 TD/TT: 01/16/25 1520 Ui Engineer: Procedure Note Donotuseinterpreter, Image - 01/16/[address] [address] XRay Report Signed Patient: Kenia ClevelandR#: [id number] [birth year] : 1950cct:[id number] Age/Sex: 74 / MADM Date: 01/16/25 Loc: [facility] Attending Dr: Sunny Paniagua NP Ordering Physician: SUNNY PANIAGUA NP Date of Service: 01/16/25 Procedure(s): XR knee LT 3V Accession Number(s): [id number] cc: SUNNY PANIAGUA NP Reason for Exam: fell in February, hit L knee. Ongoing pain x 3 mo EXAMINATION: XR KNEE, LEFT CLINICAL INFORMATION: fell in February, hit L knee. Ongoing pain x 3 mo COMPARISON: None available. TECHNIQUE: AP standing (included in the right knee x-ray), sunrise and lateral views of the left knee. FINDINGS: There is mild to moderate narrowing in the medial joint space and minimal narrowing of the lateral joint space. There is subtle medial subluxation of distal femur. There are tricompartmental marginal osteophytes most pronounced in the medial joint line and patellofemoral joint. Intercondylar tubercles are peaked. No joint effusion is evident. XR/XR knee LT 3V IMPRESSION: Moderate osteoarthritis. Electronically signed by: Jack Bates MD 01/16/2025 03:28 PM EDT RP Dictated By: Jack Bates MD Signed By: <Electronically signed by Jack Bates MD in OV> 01/16/25 1528 DD/ 1501 TD/TT: 01/16/25 1520 Ui Engineer: us Sunny Paniagua ANP IMG XR PROCEDURES Final Result * Albumin, Random Urine W/Creatinine (01/16/2025 2:47 PM EDT) Creatinine, Urine 150.65 mg/dL [facility] Microalbumin Urine 6.0 mg/L [facility] Microalbum Creatinine Ratio Ur 3.9 <30 ug/mg cr [facility] Comment:Albumin/Creatinine R atio Reference Ranges: Normal: < 30 ug/mg creatinine Microalbuminuria: 30 - 300 ug/mg creatinineClinical Albuminuria: > 300 ug/mg creatinine Urine (Urine, Random) 01/16/2025 2:47 PM EDT 01/16/2025 4:02 PM EDT us Sunny ROSA LAB URINE ORDERABLES Final Resul t [facility] [address] [place] [phone] [phone] * (ABNORMAL) Lipid Panel, Standard (01/16/2025 2:47 PM EDT) Triglycerides 131 <150 mg/dL [facility] Comment:Desirable Triglyceri de: less than 150 mg/dLBorderline High Triglyceride 150-199 mg/dLHigh Triglyceride: 200-499 mg/dLVery High Triglyceride: greater than or equal to 5OO mg/dL Cholesterol 224(H) <200 mg/dL [facility] Comment:Desirable Cholestero l: less than 200 mg/dLBorderline High Cholesterol: 200-239 mg/dLHigh Cholesterol: greater than 239 mg/dL LDL Cholesterol Calculated 124(H) <100 mg/dL [facility] Comment:Desirable LDL: less than 100 mg/dLNear Optimal/Above Optimal LDL: 110- 129 mg/dLBorderline High LDL: 130-159 mg/dLHigh LDL: 160-189 mg/dLVery High LDL: greater than or equal to 190 mg/dL HDL Cholesterol 74 >40 mg/dL [facility] Comment:Desirable HDL: great er than 40 mg/dL Note: This HDL assay may give artificially low results in patients with liver disease. Blood Venous blood specimen / Unknown 01/16/2025 2:47 PM EDT 01/16/2025 4:21 PM EDT [facility] LAB BLOOD ORDERABLES Final Resul t [facility] [address] [place] [phone] * (ABNORMAL) Comprehensive Metabolic Panel (01/16/2025 2:47 PM EDT) Pathologist [facility] Sodium 140 135 - 145 mmol/L [facility] Potassium 3.8 3.3 - 5.1 mmol/L [facility] Chloride 103 96 - 108 mmol/L [facility] Carbon Dioxide 29 22 - 29 mmol/L [facility] Anion Gap 12 12 - 20 [facility] Urea Nitrogen (BUN) 22(H) 9 - 16 mg/dL [facility] Creatinine, Serum 1.02 0.5 - 1.4 mg/dL [facility] Estimated Glomerular Filt Rate >60 [facility] Comment:Chronic Kidney Disea se: Estimated GFR < 60 mL/min/[id number] Kidney Disease: Estimated GFR < 15 mL/min/1.73m2 Glucose 101 60 - 115 mg/dL [facility] Calcium 9.4 8.4 - 10.2 mg/dL [facility] Bilirubin, Total 1.5(H) 0.0 - 1.0 mg/dL [facility] Comment:Slight Icterus. Aspartate Amino Transferase 25 5 - 37 U/L [facility] Alanine Aminotransferase 36 0 - 40 U/L [facility] Total Protein 7.4 6.5 - 8.0 g/dL [facility] Albumin Level 4.4 3.5 - 5.0 g/dL [facility] Alkaline Phosphatase 61 39 - 117 U/L [facility] Blood Venous blood specimen / Unknown 01/16/2025 2:47 PM EDT 01/16/2025 4:21 PM EDT [facility] LAB BLOOD ORDERABLES Final Resul t [facility] [address] [place] [phone] * DC ARTHROCENTESIS ASPIR&/INJ MAJOR JT/BURSA W/O US (11/28/2024 9:54 AM EDT) Narrative Alyssia Gutiérrez MD - 11/28/2024 9:54 AM EDT Alyssia Gutiérrez MD 11/28/2024 10:16 AM Arthrocentesis Date/Time: 11/28/2024 9:54 AM Performed by: Alyssia Gutiérrez MD Authorized by: Alyssia Gutiérrez MD Consent: Consent obtained: Verbal and written Consent given by: Patient Risks, benefits, and alternatives were discussed: yes Risks discussed: Pain Alternatives discussed: Referral [place] protocol: Procedure explained and questions answered to patient or proxy's satisfaction: yes Relevant documents present and verified: yes Test results available: yes Imaging studies available: yes Required blood products, implants, devices, and special equipment available: yes Site/side marked: yes Immediately prior to procedure, a time out was called: yes Patient identity confirmed: Verbally with patient Location: Location: Knee Knee: L knee Anesthesia: Anesthesia method: Topical application Procedure details: Preparation: Patient was prepped and draped in usual sterile fashion Needle gauge: 22 G Ultrasound guidance: no Approach: Lateral Steroid injected: yes Specimen collected: no Post-procedure details: Dressing: Adhesive bandage Procedure completion: Tolerated us Alyssia Gutiérrez MD IN CLINIC/BEDSIDE ORDERABLES Fin al Result * (ABNORMAL) POCT HGB A1C (06/26/2024 2:56 PM EDT) Hemoglobin A1C 6.2(A) 4.0 - 6.0 % QC Media Lot # [id number] Lot# Expiration Date Blood 06/26/2024 2:56 PM EDT Sunny Paniagua ANP POINT OF CARE TEST ENTER/EDIT OR DERABLES Final Result * Colonoscopy (02/24/2021 10:54 AM EST) Historical Provider HEALTH MAINTENANCE Final Result from Last 3 Months or Most Recently Relevant to Health Maintenance Insurance [employer] MED[employer]ARE [employer]PL[employer]EMENT Care Teams Beef Breaker Relationship Specialty Start Date End Date Sunny Paniagua ANP [address] [place] [phone] PCP - General Family Medicine 02/16/22
--- OUTSIDE RECORDS SUMMARY | 2025-01-16 19:10 | XMS_ITS | Encounter Summary ---
Author Organization [employer] Address [address] [place] [address] Care Team Providers Care Operation Agent Name Role Phone Karina Menard Primary Care Provider [phone] Reason for Visit * Reason Onset Date Comments Appointment Request 07/05/2024 Encounter Details Date Type Department Care Team ([facility] st Contact Info) Description 07/05/2024 Telephone [facility] MED[facility]INE [address] [place] [address] Karina Menard ANP [address] [place] [address] Appointment Request Social History Tobacco Use Types [...] encounter Miscellaneous Notes * Telephone Encounter - Ashok Urban - 07/05/2024 12:35 PM EDT Tc from pt requesting to R/s Appt from 07/11/24 due to 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 Contact Pt at [phone] documented in this encounter Plan of Treatment Not on file documented as of this encounter Visit Diagnoses Not on filedocumented in this encounter Additional Health Concerns Assessment Noted Time PHQ-9 Depression Total Score: 0 09/07/19 24 1:41 PM EDT documented as of this encounter Care Teams Operation Agent Relationship Specialty Start Date End Date Karina Menard ANP [address] [place] [phone] PCP - General Family Medicine 02/16/22 documented as of this encounter
--- OUTSIDE RECORDS SUMMARY | 2025-01-16 19:10 | XMS_ITS | Encounter Summary ---
Author Organization [employer] Address [address] [facility] [address] [place] [address] Care Team Providers Care Driller And Reamer Name Role Phone Karina Menard Primary Care Provider [phone] Reason for Visit * Reason Onset Date Comments Nurse Triage 08/15/2024 Encounter Details Date Type Department Care Team ([facility] st Contact Info) Description 08/15/2024 Telephone [facility] MEDICINE [address] [place] [address] Karina Menard ANP [address] [place] [address] Nurse Triage Social History Tobacco Use Types Packs/Day Years [...] encounter Miscellaneous Notes * Telephone Encounter - Ashley Vieyra RN - 08/15/2024 11:57 AM EDT Called pt. No answer. Left message on pt. Voicemail to please call back [facility] nurses at [phone].Pt. States that he was helping Daughter move yesterday and took Tylenol with no relief of pain in right knee. Pt states he had a cortisone injection in past on his left knee that helped him but, now his right knee is painful. No swelling on right knee. Per Inhalation Therapy Teacher Juani, will send this note to [facility] team nurses to discuss with Dr. Gutiérrez about injection. Please call pt. Back today with information. Protocol Used: Knee Pain (Adult) Protocol-Based Disposition: See in Office or Video Visit within 3 Days Video visit offer not recorded Positive Triage Questions: * Moderate pain (e.g., symptoms interfere with work or school, limping) and present > 3 days * Mild knee pain persists > 7 days * Patient wants to be seen * All higher-acuity triage questions were negative Care Advice Discussed: * Reassurance and Education - Knee Pain * Pain Medicines * Pain Medicines - Extra Notes and Warnings * Using Heat for Pain * Telephone Encounter - Amos Gerardo - 08/15/2024 10:21 AM EDT Symptom: Knee Pain - Not From Injury Outcome: Schedule an urgent appointment (within 1 hour) or talk to a nurse or provider soon Reason: Trouble walking The caller accepted this outcome. documented in this encounter Plan of Treatment Not on file documented as of this encounter Visit Diagnoses Not on filedocumented in this encounter Additional Health Concerns Assessment Noted Time PHQ-9 Depression Total Score: 0 09/07/19 24 1:41 PM EDT documented as of this encounter Care Teams Driller And Reamer Relationship Specialty Start Date End Date Karina Menard ANP [address] [place] [phone] PCP - General Family Medicine 02/16/22 documented as of this encounter
--- OUTSIDE RECORDS SUMMARY | 2025-01-16 19:10 | XMS_ITS | Encounter Summary ---
Author Organization [employer] Address [address] [facility] [address] [place] [address] Care Team Providers Care Assistant Professor Of Art Name Role Phone Karina Menard Primary Care Provider [phone] Encounter Details Date Type Department Care Team ([facility] Contact Info) Description 04/07/2023 Orders Only [facility] [address] [place] [address] Margie Tubbs LPN Social History Tobacco Use Types Packs/Day Years [...] on filedocumented in this encounter Care Teams Assistant Professor Of Art Relationship Specialty Start Date End Date Karina Menard ANP [address] [place] [id number] PCP - General Family Medicine 02/16/22 documented as of this encounter
[2025-01-17 08:26] LABS: HBS Num1 0.88 mIU/mL (0-7.99); HBc Num1 0.06 S/CO (0.00-0.79); HBsAGNum1 0.50 S/CO (0.00-0.99); Hepatitis B Surface Antigen Negative (Negative); ~HepC Num1 0.06 S/CO (0.00-0.79); ~Hepatitis B Surface Antibody NONREACTIVE (Nonreactive); ~Hepatitis C Antibody Nonreactive (Nonreactive)
== END 2025-01-16 14:43 | disposition home or self-care (01) ==
LOC: HO.HHCL 14:42
PROVIDERS: PCP Nurse Practitioner Primary Care; Visit Provider Nurse Practitioner Primary Care
DX: Z00.00 Encounter for general adult medical examination without abnormal findings (principal); G89.29 Other chronic pain; M25.561 Pain in right knee; M25.562 Pain in left knee; I10 Essential (primary) hypertension; R73.01 Impaired fasting glucose
CPT/HCPCS: 36415; 73562; 80053; 80061; 82043; 82570; 85025; 86704; 86706; 86803; 87340

== ENCOUNTER → 2025-01-16 15:01 | Outpatient (BNV) | payer MEDICARE, OTHER, SELFPAY | PROVIDERS: PCP Nurse Practitioner Primary Care; Visit Provider Radiology Diagnostic Radiology | DX: M17.0 Bilateral primary osteoarthritis of knee (principal) | CPT/HCPCS: 73562 ==